=== PATIENT | male | born 1960 | race Caucasian/White ===

== ENCOUNTER → 2024-10-20 | Outpatient (CLI) | payer MEDICARE, MEDICAID, SELFPAY ==
--- NOTE | 2024-10-20 13:13 | XR_ITS ---
Examination: CT middle inner ear, without contrast. 2-D coronal reconstructions. 2-D sagittal reconstructions. Date and time of exam: October 20, 2024 1337 hours INDICATIONS: Diagnosis chronic suppurative otitis media right year, drainage 3 years CTDI: vol (mGy): 16.2 DLP: (mGycm):238 Technique: Multiple 1.0 mm axial sections of the middle inner ears bilaterally. High-resolution 64 slice scanner utilized. 2-D coronal reconstructions 2-D sagittal reconstructions Low dose protocols were performed. One or more of the following dose reduction techniques were used; automated exposure control, adjustment of the mA and/or KV according to patient size, use of iterative reconstruction technique. Findings: Axial sections of the right demonstrate markedly reduced mastoid aeration. Jugular fossa and carotid canal do not appear remarkable. No deformity of the ossicles. Porus acusticus internus does not exhibit erosion. Cochlear apparatus unremarkable. Semicircular canals normal. External auditory canal open. Right otitis media Coronal reconstructions demonstrate no erosion of the scutum. There is soft tissue mass in the attic or Prussak's space. Ossicular mass intact. Axial sections of the left demonstrate adequate mastoid aeration. Jugular fossa and carotid canal do not appear remarkable. No deformity of the ossicles. Porus acusticus internus does not exhibit erosion. Cochlear apparatus unremarkable. Semicircular canals normal. External auditory canal open Coronal reconstructions demonstrate no erosion of the scutum. No soft tissue mass in the attic or Prussak's space is seen. Ossicular mass intact. Roof of the mastoid air cells appear intact bilaterally. Impression: Severe chronic right mastoiditis Acute right mastoiditis Right otitis media Soft tissue mass in the attic or Prussak's space on the right, acquired cholesteatoma
== END | disposition home or self-care (01) ==
PROVIDERS: PCP Nurse Practitioner Family; Referring Provider Nurse Practitioner Family; Visit Provider Nurse Practitioner Family
DX: H70.11 Chronic mastoiditis, right ear (principal); H70.001 Acute mastoiditis without complications, right ear; H66.91 Otitis media, unspecified, right ear; H93.8X1 Other specified disorders of right ear
CPT/HCPCS: 70480

== ENCOUNTER 2024-11-19 06:45 | Day surgery (SDC) | payer MEDICARE, MEDICAID, SELFPAY ==
--- NOTE | 2024-11-18 06:22 | EKG_ITS ---
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
[2024-11-18 06:48] VITALS: BMI 28.6
[2024-11-18 09:24] LABS: INR 1.1 (0.9-1.3); Partial Thromboplastin Time 27.5 Seconds (22.0-36.0); Prothrombin Time 12.1 Seconds (9.0-12.2)
[2024-11-18 09:42] LABS: Alanine Aminotransferase 10 U/L (10-49); Albumin, Serum 4.7 gm/dL (3.4-4.8); Albumin/Globulin Ratio 1.9 (1.2-2.2); Alkaline Phosphatase 88 U/L (46-116); Anion Gap 5 (7-16); Aspartate Amino Transferase 29 U/L (0-34); BUN/Creatinine Ratio 14 Ratio (12-20); Bilirubin,Total 0.6 mg/dL (0.3-1.2); Blood Urea Nitrogen 13 mg/dL (9-23); Calcium 10.1 mg/dL (8.3-10.6); Calcium (Corrected) 10.1 mg/dL (8.5-10.1); Carbon Dioxide 24.3 mMol/L (20.0-31.0); Chloride 110 mMol/L (98-107); Creatinine (Component) 0.9 mg/dL (0.6-1.3); Estimated Creatinine Clearance 99.6 mL/min (>60); Globulin 2.5 gm/dL (2.3-3.5); Glucose 110 mg/dL (74-106); Osmolality,Calculated 278 (275-295); Potassium 3.5 mMol/L (3.4-5.1); Sodium 139 mMol/L (136-145); Total Protein 7.2 gm/dL (5.7-8.2); eGFR > 60 See Note
[2024-11-19] VITALS (7 sets, daily range): BP systolic 116–160; BP diastolic 75–99; PULSE 75–102; RESP 16–22; TEMP 36.3–36.6; O2SAT 92–97; BMI 28.0
[2024-11-19] MEDS: SODIUM CHLORIDE 0.9% 500 ML 500 ML 20 ML IV (08:17)
--- NOTE | 2024-11-19 11:26 | PD.SUROPNT ---
Date of Procedure 11/19/24 Pre Op Diagnosis Right chronic mastoiditis Mixed hearing loss right ear Post Op Diagnosis Chronic mastoiditis right ear Mixed hearing loss right ear Procedure Right tympanomastoidectomy with facial nerve monitoring Findings Thickened right tympanic membrane with mucoid middle ear effusion. The ossicular chain was intact and mobile. There were adhesions between the tympanic membrane and the long process of the incus. The entire mastoid was sclerotic with almost no air cells until the antrum was reached. The air cells that were present were filled with thickened disease mucosa. Procedure Description Indications: This is a 64-year-old male with chronic infections of the right ear with hearing loss as described above. CT scan confirmed a chronic mastoiditis with concern over possible cholesteatoma formation up into the attic region. Treatment options were discussed as well as surgical risks including bleeding infection hearing loss facial nerve paralysis and decreased sense of taste. The patient understood this and wished to proceed. Patient was marked and shaved in the preoperative setting and then transferred to the operative suite where he was anesthetized and intubated. Facial nerve monitoring electrodes were placed in usual fashion for the right ear. Timeout was performed. Patient was sterilely prepped and draped. Postauricular area as well as the canal were injected with 1% lidocaine with 1 100,000 dilution epinephrine. Approximately 5 cc total were used. Canal was irrigated with warm saline solution and suction. The tympanomeatal flap was created and the tympanic membrane turned forward with the findings as described above. The middle ear effusion was aspirated requiring a 7 suction that was so thick. Adhesions between the tympanic membrane and the incus were removed with the CO2 laser at a setting of 2 W. Mobility was then confirmed with testing of the malleus. The chorda tympani nerve was preserved. Postauricular incision was created as well as a polyp flap. Flaps were held with self-retaining retractors and a standard canal wall up mastoidectomy was initiated. #6 cutting bur was used to perform most of the drilling until we were deeper into the mastoid. Then I switched over to a 3 long cutting bur. Dissection was carried anterior to the sigmoid sinus and inferior to the tegmen. The posterior canal wall was then. The bone was very sclerotic inhibiting view of the even the horizontal canal until I was just above it in the attic region where an air cell finally opened up. There was a vein of thickened mucosa extending down into the mastoid cavity was identified. This was the area that was concerned there might be a cholesteatoma present. None was present. Made sure there was good flow between the middle ear and the mastoid cavity with the suction. Mastoid cavity was irrigated with warm saline solution and suction. The tympanomeatal flap was returned back to its normal position and Surgifoam dipped in saline was packed on top of it. Sterile cottonball was placed in the external meatus and Warrick dressing applied after removal of the facial nerve monitoring electrodes. The nerve was tested in the horizontal segment prior to closure and found to have a good signal intact. Patient was then awakened and taken recovery room in stable condition Anesthesia GETA Pathology / specimen None Estimated Blood Loss 5 Surgeon Dylan Osman DO Surgical Staff Operation Date: 11/19/24 09:15 Case Staff Anesthesiologist: Simon Gibbs
--- NOTE | 2024-11-19 11:30 | SUR.PHASEI ---
pt received from OR in recovery bay 1. pt obtunded, breathing unlabored on oxymask 8l, oral airway in place. v/s stable. pt dressing to right ear cdi. report received from [facility] and [facility].
--- NOTE | 2024-11-19 11:46 | SUR.PHASEI ---
pt able to tolerate oral fluids without difficulty swallowing or nausea/vomiting.
[2024-11-19] MEDS: fentaNYL CIT INJ 50 mCg/ML AMP 2ML 25 MCG IV (12:05)
--- NOTE | 2024-11-19 12:31 | SUR.PHASEII ---
pt awake and alert, breathing unlabored on room air. v/s stable. pt dressing to right ear cdi. pt able to ambulate to wheelchair with steady gait. d/c instructions given with daughter Yann in room, all questions answered. pt d/c via wheelchair with all belongings.
== END 2024-11-19 12:31 | disposition home or self-care (01) ==
PROVIDERS: PCP Nurse Practitioner Family; Referring Provider Otolaryngology; Visit Provider Otolaryngology
PROC: (CPT 69641; principal; 2024-11-19 09:00)
DX: H90.71 Mixed conductive and sensorineural hearing loss, unilateral, right ear, with unrestricted hearing on the contralateral side (principal); H70.11 Chronic mastoiditis, right ear; Z01.810 Encounter for preprocedural cardiovascular examination
CPT/HCPCS: 69642; 36415; 80053; 85025; 85610; 85730; 93005; A4217; A4649; J0131; J0171; J0690; J1100; J2250; J2371; J2405; J2704; J2765; J3010; J3473; J3490; J7040; A9270

== ENCOUNTER 2025-02-24 12:20 | Day surgery (SDC) | payer OTHER, MEDICAID, SELFPAY ==
[2025-02-24] VITALS (12 sets, daily range): BP systolic 116–190; BP diastolic 78–117; PULSE 63–83; RESP 14–22; TEMP 36.7–36.8; O2SAT 92–95; BMI 26.8
[2025-02-24] MEDS: RINGERS LACTATED 1000 ML 1,000 ML 100 ML IV (13:17)
[2025-02-24] MEDS: MIDAZOLAM INJ 1 MG/ML VIAL 2 ML (ASD USE ONLY) 2 MG IV (13:19)
[2025-02-24] MEDS: fentaNYL CIT INJ 50 mCg/ML AMP 2ML (ASD USE ONLY) IV (13:19)
[2025-02-24] MEDS: DiphenhydrAMINE INJ 50 MG/ML VIAL 25 MG IV (13:25)
[2025-02-24] MEDS: hydrALAZINE INJ 20 MG/ML VIAL 10 MG IV (13:37)
== END 2025-02-24 14:40 | disposition home or self-care (01) ==
PROVIDERS: PCP Family Medicine; Referring Provider Surgery; Visit Provider Surgery
PROC: 0DBE8ZX Excision of Large Intestine, Via Natural or Artificial Opening Endoscopic, Diagnostic (ICD-10-PCS; CPT 45380; principal; 2025-02-24 13:00)
DX: Z12.11 Encounter for screening for malignant neoplasm of colon (principal); D12.5 Benign neoplasm of sigmoid colon
CPT/HCPCS: 45380; A4649; J0360; J1200; J2250; J3010; J7120